=== PATIENT | male | born 1950 | race Caucasian/White ===

== ENCOUNTER 2018-03-06 05:54 | Day surgery (SDC) | payer MEDICARE, BC ==
[2018-03-06] MEDS ORDERED: Scopolamine 1.5 MG Transdermal Patch TOP SCH (06:10)
[2018-03-06] MEDS ORDERED: ceFAZolin 2 GM in Premix Bag 1 BAG IV ONE (06:10)
[2018-03-06] MEDS ORDERED: Lactated Ringers 1,000 ML IV SCH (06:10)
[2018-03-06] MEDS ORDERED: Acetaminophen 500 MG Tab PO ONE (06:10)
[2018-03-06] MEDS ORDERED: Midazolam 1 MG/ML 2 ML SDV ONE (07:12)
[2018-03-06] MEDS ORDERED: fentaNYL 250 MCG/5 ML SDV ONE (07:12)
[2018-03-06] MEDS ORDERED: Rocuronium 50 MG/5 ML Vial ONE (07:13)
[2018-03-06] MEDS ORDERED: Glycopyrrolate 0.2 MG/ML 5 ML MDV ONE (07:13)
[2018-03-06] MEDS ORDERED: Neostigmine Methylsulfate 1 MG/ML 5 ML Syringe ONE (07:13)
[2018-03-06] MEDS ORDERED: Propofol 200 MG/20 ML SDV ONE (07:13)
[2018-03-06] MEDS ORDERED: Dexamethasone 4 MG/ML SDV ONE (07:13)
[2018-03-06] MEDS ORDERED: Ondansetron 4 MG/2 ML SDV ONE (07:13)
[2018-03-06] MEDS ORDERED: Succinylcholine 200 MG/10 ML MDV ONE (07:13)
[2018-03-06] MEDS ORDERED: Lidocaine 1% 2 ML ONE (07:17)
[2018-03-06] MEDS ORDERED: Bupivacaine 0.5% 30 ML SDV ONE ×2 (07:17→08:22)
[2018-03-06] MEDS ORDERED: EPINEPHrine 1 MG/ML SDV ONE (07:20)
[2018-03-06] MEDS ORDERED: Povidone-Iodine 10% Soln 118.25 ML Bottle ONE (07:20)
[2018-03-06] MEDS ORDERED: Bupivacaine 0.5%/EPINEPHrine 1:200,000 50 ML MDV ONE (07:20)
[2018-03-06] MEDS ORDERED: ePHEDrine 50 MG/ML SDV ONE (08:17)
[2018-03-06] MEDS ORDERED: Lactated Ringers 1,000 ML ONE (09:43)
[2018-03-06] MEDS ORDERED: Acetaminophen/oxyCODONE 325-5 MG Tab PO ONE (11:18)
[2018-03-06] MEDS ORDERED: Ketorolac 60 MG/2 ML SDV IM ONE (11:18)
[2018-03-06 11:44] VITALS: BP 120/62
--- NOTE | 2018-03-06 12:04 | OR ---
DATE OF PROCEDURE: 03/06/2018 PREOPERATIVE DIAGNOSES: 1. Right thumb ganglion cyst. 2. Right shoulder impingement. 3. Right shoulder rotator cuff tear. POSTOPERATIVE DIAGNOSES: 1. Right thumb ganglion cyst. 2. Right shoulder impingement. 3. Right shoulder rotator cuff tear. PROCEDURE: 1. Right thumb ganglion removal. 2. Right shoulder arthroscopy with subacromial decompression. 3. Distal clavicle resection. 4. Limited debridement. 5. Mini open rotator cuff repair. ANESTHESIA: Interscalene block plus general endotracheal intubation. FLUID: Lactated Ringer's solution. ESTIMATED BLOOD LOSS: Less than 10 mL. COMPLICATIONS: None. SPECIMEN: None. DISCHARGE DISPOSITION: Stable to PACU. HISTORY AND INDICATIONS FOR THE PROCEDURE: The patient was seen preoperatively by myself in the clinic. He had a preoperative MRI confirming the above-mentioned diagnosis. He also had a ganglion on his right thumb. This had been removed previously. Risks and benefits of the procedure were explained to the patient. Informed consent was obtained. DETAILS OF THE PROCEDURE: The patient was seen preoperatively by myself and the Anesthesia staff in the preoperative holding area, where the operative site was marked. He was brought to the operative suite by the Anesthesia staff, where general anesthesia was administered. After an interscalene block was performed, we 1st positioned him in a supine position on the table with a hand table for the ganglion cyst removal. Well-padded tourniquet was placed on the right arm. The right upper extremity was then prepped and draped in a sterile manner. Time-out was called identifying the correct patient, the correct procedure, the correct site, and antibiotics had begun within appropriate period of time. The right upper extremity was then exsanguinated. Tourniquet was raised to 250 mmHg. I then used a Kwan incision over the ulnar aspect of the thumb just distal to the interphalangeal joint on its extensor surface over the ganglion. The ganglion was penetrated 1st. I then used small skin hooks to carefully peel back the skin with a 15 blade and then used iris scissors to go down to the base of the ganglion at the interphalangeal joint and then I used a Josie to rough up the surface after removing the root of the ganglion. I then copiously irrigated with saline and then closed my incision with 3-0 nylon followed by Betadine-soaked Adaptic and sterile dressing. We then removed out all of our drapes and then re-prepped the right arm after placing him into a beach chair position. All extremities were found to be well padded. After the right upper extremity was then prepped and draped in a sterile manner, time-out again was then called, identifying the correct patient, the correct procedure, the correct site, and antibiotics had begun within appropriate period of time. I then made a posterior portal and into the joint. He did have some minor fraying of the glenoid at the biceps insertion. The rotator cuff tear was visualized. I used a shaver and an ablation unit to debride the frayed tears. I did this through an anterior portal with a disposable trocar. After this had been done, I then entered the subacromial space and then made a lateral portal. I then debrided the subacromial space with a shaver and ablation unit. I then debrided the inferior surface of the acromial hook, which was a type 2 as well as the distal clavicle, which had a very large inferior osteophyte. I then spent a great deal of time removing over 50% of the inferior acromion as well as the inferior clavicle. After this had been performed, I controlled any bleeders with the ablation unit. I then removed all of my arthroscopy equipment from the joint. I then re-prepped and then made a horizontal incision approximately 1 cm distal to the acromion and then went through the raphae between the anterior and medial portions of the deltoid approximately where my lateral portal was. After this had been done, I removed some excess bursa. I was able to identify the rotator cuff tear. I then placed two JuggerKnot anchors and then did mattress sutures from each anchor through the anterior and posterior portion of the cuff. After this had been done, I then tensioned these and tied these down and then I placed two knotless [place] anchors and then placed those in a distal row and then took a suture from each of the previous anchors and tamped those down into the [place] anchors. After this had been accomplished, I then clipped my strands. We then copiously irrigated with saline. I closed the deltoid with #1 StrataFix followed by subcutaneous closure with 2-0 Vicryl followed by skin alix for the open rotator cuff incision as well as the portals. This was covered by Betadine-soaked Adaptic and sterile dressings and Medipore tape. The patient was then moved into the hospital bed in a supine position, taken to the PACU in stable condition. Bakari Staton DO /[id number]
== END 2018-03-06 12:50 | disposition home or self-care (01) ==
LOC: JP.SDS 05:54
PROVIDERS: ATTEND Orthopaedic Surgery
DX: M75.121 Complete rotator cuff tear or rupture of right shoulder, not specified as traumatic (principal); M67.441 Ganglion, right hand; M25.811 Other specified joint disorders, right shoulder; Z79.899 Other long term (current) drug therapy; I10 Essential (primary) hypertension; G47.30 Sleep apnea, unspecified; M19.90 Unspecified osteoarthritis, unspecified site; G43.909 Migraine, unspecified, not intractable, without status migrainosus; F41.9 Anxiety disorder, unspecified; Z90.49 Acquired absence of other specified parts of digestive tract
CPT/HCPCS: 23410; 26160; 29824; A9270; C1713; J0171; J0330; J1100; J1885; J2001; J2250; J2405; J2704; J3010; J3370; J7050; J7120; J2710

== ENCOUNTER 2023-08-13 13:19 | Emergency (ER) | payer MEDICARE ==
[2023-08-13 13:49] VITALS: BP 137/62; PULSE 74
[2023-08-13 14:19] LABS: BASOPHILS ABSOLUTE AUTO 0.04 K/uL (0.00-0.10); BASOPHILS PERCENT AUTO 0.4 % (0.1-1.3); EOSINOPHILS PERCENT AUTO 0.1 % (0.0-5.4); HEMATOCRIT 38.9 % (38.4-49.7); HEMOGLOBIN 12.7 g/dL (12.9-16.9); IMMATURE GRAN ABSOLUTE AUTO 0.05 K/uL (0.00-0.23); IMMATURE GRAN PERCENT AUTO 0.6 % (0.0-0.7); LYMPHOCYTES ABSOLUTE AUTO 0.59 K/uL (0.8-3.3); LYMPHOCYTES PERCENT AUTO 6.5 % (11.4-47.7); MEAN CORPUSCULAR HEMOGLOBIN 29.5 pg (31.6-35.5); MEAN CORPUSCULAR HGB CONC 32.6 g/dL (31.6-35.5); MEAN CORPUSCULAR VOLUME 90.3 fL (81.4-99.0); MONOCYTES ABSOLUTE AUTO 0.64 K/uL (0.20-0.90); NEUTROPHILS ABSOLUTE AUTO 7.75 K/uL (1.0-7.6); NEUTROPHILS PERCENT AUTO 85.4 % (40.0-78.1); PLATELET COUNT,PLT 204 K/uL (130-375); RED BLOOD CELL COUNT 4.31 M/uL (4.14-5.76); WHITE BLOOD CELL COUNT,WBC 9.1 K/uL (3.2-11.0)
[2023-08-13 14:21] LABS: EOSINOPHILS ABSOLUTE AUTO 0.01 K/uL (0.00-0.40)
[2023-08-13 14:42] LABS: A/G RATIO 0.7 (1.2-2.2); ALANINE AMINOTRANSFERASE,ALT 3 U/L (12-78); ALBUMIN 2.6 g/dL (3.4-5.0); ALKALINE PHOSPHATASE 70 U/L (46-116); ASPARTATE AMNIOTRANSFERASE,AST 44 U/L (15-37); BLOOD UREA NITROGEN,BUN 18 mg/dL (7-18); CALCIUM 8.7 mg/dL (8.5-10.1); CARBON DIOXIDE,CO2 27 mmol/L (21-32); CHLORIDE,CL 103 mmol/L (100-108); CREATININE 0.8 mg/dL (0.8-1.3); EST CRCL DRUG DOSING (CG) 95.71 mL/min; ESTIMATED GFR 95 mL/min (>60); GLUCOSE RANDOM 127 mg/dL (74-106); POTASSIUM,K 3.7 mmol/L (3.6-5.2); PROTEIN TOTAL,TP 6.5 g/dL (6.4-8.2); SODIUM,NA 138 mmol/L (140-148)
[2023-08-13 14:46] LABS: ANION GAP 11.7 mmol/L (5.0-14.0)
[2023-08-13 17:31] LABS: APPEARANCE,URINE CLEAR (CLEAR); BILIRUBIN,URINE SMALL (NEGATIVE); COLOR,URINE ORANGE (YELLOW); GLUCOSE,URINE NEGATIVE (NEGATIVE); KETONES,URINE 40 mg/dL (NEGATIVE); LEUKOCYTE ESTERASE,URINE NEGATIVE (NEGATIVE); NITRITE,URINE NEGATIVE (NEGATIVE); OCCULT BLOOD,URINE NEGATIVE (NEGATIVE); PROTEIN,URINE NEGATIVE (NEGATIVE)
[2023-08-13 17:42] LABS: AMORPHOUS SEDIMENT,URINE NOT SEEN; BACTERIA,URINE NOT SEEN; EPITHELIAL CELLS,URINE NOT SEEN; MUCUS,URINE FEW; RBC,URINE 0-5 (0-5); WBC,URINE 0-5 (0-5)
== END 2023-08-13 17:43 | disposition home or self-care (01) ==
LOC: JP.ED 13:19
DX: M17.11 Unilateral primary osteoarthritis, right knee (principal); R53.1 Weakness; I10 Essential (primary) hypertension; E11.9 Type 2 diabetes mellitus without complications; Z79.899 Other long term (current) drug therapy
CPT/HCPCS: 36415; 73562-26-RT; 73562-RT; 80053; 81001; 83605; 85025; 99285

== ENCOUNTER 2023-09-03 19:48 | Inpatient (IN) | payer MEDICARE ==
[2023-09-03 20:05] LABS: BASOPHILS ABSOLUTE AUTO 0.03 K/uL (0.00-0.10); BASOPHILS PERCENT AUTO 0.3 % (0.1-1.3); EOSINOPHILS ABSOLUTE AUTO 0.01 K/uL (0.00-0.40); EOSINOPHILS PERCENT AUTO 0.1 % (0.0-5.4); HEMATOCRIT 37.2 % (38.4-49.7); HEMOGLOBIN 12.5 g/dL (12.9-16.9); IMMATURE GRAN ABSOLUTE AUTO 0.07 K/uL (0.00-0.23); IMMATURE GRAN PERCENT AUTO 0.6 % (0.0-0.7); LYMPHOCYTES ABSOLUTE AUTO 0.74 K/uL (0.8-3.3); LYMPHOCYTES PERCENT AUTO 6.8 % (11.4-47.7); MEAN CORPUSCULAR HEMOGLOBIN 29.4 pg (31.6-35.5); MEAN CORPUSCULAR HGB CONC 33.6 g/dL (31.6-35.5); MEAN CORPUSCULAR VOLUME 87.5 fL (81.4-99.0); MONOCYTES ABSOLUTE AUTO 0.61 K/uL (0.20-0.90); MONOCYTES PERCENT AUTO 5.6 % (3.3-12.6); NEUTROPHILS ABSOLUTE AUTO 9.35 K/uL (1.0-7.6); NEUTROPHILS PERCENT AUTO 86.6 % (40.0-78.1); PLATELET COUNT,PLT 239 K/uL (130-375); RED BLOOD CELL COUNT 4.25 M/uL (4.14-5.76); WHITE BLOOD CELL COUNT,WBC 10.8 K/uL (3.2-11.0)
[2023-09-03 20:27] LABS: A/G RATIO 0.7 (1.2-2.2); ALANINE AMINOTRANSFERASE,ALT 1 U/L (12-78); ALBUMIN 2.9 g/dL (3.4-5.0); ALKALINE PHOSPHATASE 69 U/L (46-116); ASPARTATE AMNIOTRANSFERASE,AST 32 U/L (15-37); BLOOD UREA NITROGEN,BUN 49 mg/dL (7-18); CALCIUM 8.9 mg/dL (8.5-10.1); CARBON DIOXIDE,CO2 23 mmol/L (21-32); CHLORIDE,CL 92 mmol/L (100-108); EST CRCL DRUG DOSING (CG) 25.52 mL/min; ESTIMATED GFR 22 mL/min (>60); GLUCOSE RANDOM 114 mg/dL (74-106); PROTEIN TOTAL,TP 7.1 g/dL (6.4-8.2); SODIUM,NA 130 mmol/L (140-148)
[2023-09-03 20:43] LABS: CORONAVIRUS COVID-19 NAA NEGATIVE (NEGATIVE); INFLUENZA A NAA NEGATIVE (NEGATIVE); INFLUENZA B NAA NEGATIVE (NEGATIVE); RESPIRATORY SYNCYTIAL VIR NAA NEGATIVE (NEGATIVE)
[2023-09-03] MEDS ORDERED: Sodium Chloride 0.9% 1,000 ML IV SCH ×3 (21:00→23:23)
[2023-09-03 23:19] LABS: APPEARANCE,URINE CLEAR (CLEAR); BILIRUBIN,URINE SMALL (NEGATIVE); COLOR,URINE BROWN (YELLOW); GLUCOSE,URINE NEGATIVE (NEGATIVE); KETONES,URINE 15 mg/dL (NEGATIVE); LEUKOCYTE ESTERASE,URINE NEGATIVE (NEGATIVE); NITRITE,URINE NEGATIVE (NEGATIVE); OCCULT BLOOD,URINE NEGATIVE (NEGATIVE); PH,URINE 5.5 (5.0-8.0); PROTEIN,URINE 30 mg/dL (NEGATIVE)
[2023-09-03] MEDS ORDERED: Naloxone 0.4 MG/ML SDV IVPUSH PRN (23:23)
[2023-09-03] MEDS ORDERED: Morphine 2 MG/ML SYRINGE IVPUSH PRN (23:23)
[2023-09-03] MEDS ORDERED: Non-Formulary Medication 1 Each (Carbidopa/Levodopa [Carbidopa-Levodopa 25-250] 1 EACH Tab PO SCH (23:23)
[2023-09-03] MEDS ORDERED: Ondansetron 4 MG Tab.DIS PO PRN (23:23)
[2023-09-03] MEDS ORDERED: Enoxaparin 30 MG/0.3 ML Syringe SUBCUT SCH (23:23)
[2023-09-03 23:27] LABS: BACTERIA,URINE MODERATE; EPITHELIAL CELLS,URINE FEW; RBC,URINE 0-5 (0-5); WBC,URINE 0-5 (0-5)
[2023-09-03 23:28] LABS: AMORPHOUS SEDIMENT,URINE FEW; MUCUS,URINE NOT SEEN
[2023-09-03] MEDS: metroNIDAZOLE/Normal Saline 500 MG in Premix Bag 1 BAG IV SCH (23:55)
[2023-09-03] MEDS: Acetaminophen 325 MG Tab PO PRN (23:56)
[2023-09-04] MEDS ORDERED: Sodium Chloride 0.9% 1,000 ML IV SCH ×2 (00:15→05:16)
[2023-09-04] MEDS ORDERED: Ciprofloxacin in D5W 400 MG in Premix Bag 1 BAG IV SCH ×4 (01:00→13:00)
[2023-09-04] MEDS: ALPRAZolam 0.5 MG Tab PO PRN (01:16)
[2023-09-04] MEDS: oxyCODONE 5 MG Tab PO PRN ×3 (01:27→20:25)
[2023-09-04] MEDS ORDERED: Sodium Chloride 0.9% 10 ML SDV IV SCH ×2 (03:01)
[2023-09-04 05:28] LABS: BASOPHILS ABSOLUTE AUTO 0.03 K/uL (0.00-0.10); BASOPHILS PERCENT AUTO 0.4 % (0.1-1.3); EOSINOPHILS ABSOLUTE AUTO 0.04 K/uL (0.00-0.40); EOSINOPHILS PERCENT AUTO 0.6 % (0.0-5.4); HEMATOCRIT 31.3 % (38.4-49.7); HEMOGLOBIN 10.3 g/dL (12.9-16.9); IMMATURE GRAN ABSOLUTE AUTO 0.03 K/uL (0.00-0.23); IMMATURE GRAN PERCENT AUTO 0.4 % (0.0-0.7); LYMPHOCYTES ABSOLUTE AUTO 0.65 K/uL (0.8-3.3); LYMPHOCYTES PERCENT AUTO 9.1 % (11.4-47.7); MEAN CORPUSCULAR HEMOGLOBIN 29.4 pg (31.6-35.5); MEAN CORPUSCULAR HGB CONC 32.9 g/dL (31.6-35.5); MEAN CORPUSCULAR VOLUME 89.4 fL (81.4-99.0); MONOCYTES ABSOLUTE AUTO 0.47 K/uL (0.20-0.90); MONOCYTES PERCENT AUTO 6.6 % (3.3-12.6); NEUTROPHILS ABSOLUTE AUTO 5.92 K/uL (1.0-7.6); NEUTROPHILS PERCENT AUTO 82.9 % (40.0-78.1); PLATELET COUNT,PLT 175 K/uL (130-375); WHITE BLOOD CELL COUNT,WBC 7.1 K/uL (3.2-11.0)
[2023-09-04 05:46] LABS: CALCIUM 7.9 mg/dL (8.5-10.1); CREATININE 1.6 mg/dL (0.8-1.3); EST CRCL DRUG DOSING (CG) 47.86 mL/min; POTASSIUM,K 3.5 mmol/L (3.6-5.2)
[2023-09-04 05:48] LABS: ANION GAP 12.5 mmol/L (5.0-14.0)
[2023-09-04] MEDS: metroNIDAZOLE/Normal Saline 500 MG in Premix Bag 1 BAG IV SCH (08:35)
[2023-09-04] MEDS ORDERED: Potassium Chloride 20 MEQ Tab.ER PO ONE (09:00)
[2023-09-04] MEDS: Acetaminophen 325 MG Tab PO PRN ×2 (09:52→16:07)
[2023-09-04] MEDS: CARBIDOPA LEVODOPA PO SCH ×3 (10:35→20:14)
[2023-09-04] MEDS ORDERED: Nystatin Topical Powder 15 GM Bottle TOP PRN (14:36)
[2023-09-04] MEDS: Enoxaparin 40 MG/0.4 ML Syringe SUBCUT SCH (20:15)
[2023-09-05] MEDS: ALPRAZolam 0.5 MG Tab PO PRN (00:08)
[2023-09-05] MEDS: Acetaminophen 325 MG Tab PO PRN ×3 (00:08→21:55)
[2023-09-05 07:09] LABS: CALCIUM 8.8 mg/dL (8.5-10.1); CREATININE 0.9 mg/dL (0.8-1.3); EST CRCL DRUG DOSING (CG) 85.08 mL/min; POTASSIUM,K 4.4 mmol/L (3.6-5.2)
[2023-09-05 07:10] LABS: ANION GAP 14.4 mmol/L (5.0-14.0)
[2023-09-05 07:47] LABS: BASOPHILS ABSOLUTE AUTO 0.05 K/uL (0.00-0.10); BASOPHILS PERCENT AUTO 0.9 % (0.1-1.3); EOSINOPHILS ABSOLUTE AUTO 0.17 K/uL (0.00-0.40); EOSINOPHILS PERCENT AUTO 2.9 % (0.0-5.4); HEMATOCRIT 35.2 % (38.4-49.7); HEMOGLOBIN 11.6 g/dL (12.9-16.9); IMMATURE GRAN ABSOLUTE AUTO 0.04 K/uL (0.00-0.23); IMMATURE GRAN PERCENT AUTO 0.7 % (0.0-0.7); LYMPHOCYTES ABSOLUTE AUTO 0.71 K/uL (0.8-3.3); LYMPHOCYTES PERCENT AUTO 12.2 % (11.4-47.7); MEAN CORPUSCULAR HEMOGLOBIN 29.4 pg (31.6-35.5); MEAN CORPUSCULAR VOLUME 89.3 fL (81.4-99.0); MONOCYTES ABSOLUTE AUTO 0.43 K/uL (0.20-0.90); MONOCYTES PERCENT AUTO 7.4 % (3.3-12.6); NEUTROPHILS ABSOLUTE AUTO 4.41 K/uL (1.0-7.6); NEUTROPHILS PERCENT AUTO 75.9 % (40.0-78.1); PLATELET COUNT,PLT 194 K/uL (130-375); RED BLOOD CELL COUNT 3.94 M/uL (4.14-5.76); WHITE BLOOD CELL COUNT,WBC 5.8 K/uL (3.2-11.0)
[2023-09-05] MEDS: CARBIDOPA LEVODOPA PO SCH ×3 (08:45→20:35)
[2023-09-05] MEDS ORDERED: Nystatin Topical Powder 15 GM Bottle TOP PRN (09:17)
[2023-09-05] MEDS: Diclofenac Sodium 1% Gel 100 GM Tube TOP SCH ×2 (15:30→21:37)
[2023-09-05] MEDS: oxyCODONE 5 MG Tab PO PRN (16:27)
[2023-09-05] MEDS: Enoxaparin 40 MG/0.4 ML Syringe SUBCUT SCH (20:36)
[2023-09-05] MEDS: Celecoxib 200 MG Cap PO SCH (20:36)
[2023-09-06] MEDS: Acetaminophen 325 MG Tab PO PRN (02:50)
[2023-09-06 04:30] LABS: BASOPHILS ABSOLUTE AUTO 0.04 K/uL (0.00-0.10); EOSINOPHILS ABSOLUTE AUTO 0.11 K/uL (0.00-0.40); EOSINOPHILS PERCENT AUTO 2.6 % (0.0-5.4); HEMATOCRIT 36.1 % (38.4-49.7); HEMOGLOBIN 11.9 g/dL (12.9-16.9); IMMATURE GRAN ABSOLUTE AUTO 0.06 K/uL (0.00-0.23); IMMATURE GRAN PERCENT AUTO 1.4 % (0.0-0.7); LYMPHOCYTES ABSOLUTE AUTO 0.79 K/uL (0.8-3.3); LYMPHOCYTES PERCENT AUTO 18.8 % (11.4-47.7); MEAN CORPUSCULAR HEMOGLOBIN 29.3 pg (31.6-35.5); MEAN CORPUSCULAR VOLUME 88.9 fL (81.4-99.0); MONOCYTES ABSOLUTE AUTO 0.42 K/uL (0.20-0.90); NEUTROPHILS ABSOLUTE AUTO 2.79 K/uL (1.0-7.6); NEUTROPHILS PERCENT AUTO 66.2 % (40.0-78.1); PLATELET COUNT,PLT 175 K/uL (130-375); RED BLOOD CELL COUNT 4.06 M/uL (4.14-5.76); WHITE BLOOD CELL COUNT,WBC 4.2 K/uL (3.2-11.0)
[2023-09-06 04:47] LABS: CALCIUM 8.8 mg/dL (8.5-10.1); CREATININE 0.8 mg/dL (0.8-1.3); EST CRCL DRUG DOSING (CG) 94.33 mL/min; POTASSIUM,K 4.1 mmol/L (3.6-5.2)
[2023-09-06 05:08] LABS: ANION GAP 12.1 mmol/L (5.0-14.0)
[2023-09-06] MEDS: Diclofenac Sodium 1% Gel 100 GM Tube TOP SCH ×2 (05:22→12:11)
[2023-09-06] MEDS: Celecoxib 200 MG Cap PO SCH (08:01)
[2023-09-06] MEDS: CARBIDOPA LEVODOPA PO SCH ×2 (08:01→12:50)
[2023-09-06 11:00] VITALS: BP 118/67; PULSE 74
== END 2023-09-06 13:25 | DRG 392 ==
LOC: JP.ED 19:48 → JP.MS 21:59
PROVIDERS: ADMIT Hospitalist; ATTEND Hospitalist
DX: K52.9 Noninfective gastroenteritis and colitis, unspecified (principal); F02.84 Dementia in other diseases classified elsewhere, unspecified severity, with anxiety; F03.94 Unspecified dementia, unspecified severity, with anxiety; N17.9 Acute kidney failure, unspecified; E86.0 Dehydration; I10 Essential (primary) hypertension; E11.9 Type 2 diabetes mellitus without complications; F41.9 Anxiety disorder, unspecified; G43.909 Migraine, unspecified, not intractable, without status migrainosus; M19.90 Unspecified osteoarthritis, unspecified site; M54.9 Dorsalgia, unspecified; G89.29 Other chronic pain; G47.30 Sleep apnea, unspecified; M17.0 Bilateral primary osteoarthritis of knee; G20.A1 Parkinson's disease without dyskinesia, without mention of fluctuations; B96.89 Other specified bacterial agents as the cause of diseases classified elsewhere; Z79.899 Other long term (current) drug therapy; Z90.49 Acquired absence of other specified parts of digestive tract; Z98.890 Other specified postprocedural states; Z11.52 Encounter for screening for COVID-19; Z98.84 Bariatric surgery status
CPT/HCPCS: 0241U; 36415; 735622650; 73562-50; 80048; 80053; 81001; 83605; 83735; 84484; 85025; 87040; 87077; 87086; 87088; 87186; 93005; 93010; 96125-GO; 96360; 97161-GP; 97166-GO; 97530-GP; 99284; 99285-25; A9270-GY; J0744; J1650; J3490; J7030

== ENCOUNTER 2024-11-18 12:57 | Emergency (ER) | payer MEDICARE ==
[2024-11-18 13:10] VITALS: BP 126/75; PULSE 90
== END 2024-11-18 14:30 | disposition home or self-care (01) ==
LOC: JP.ED 12:57
DX: R13.10 Dysphagia, unspecified (principal); I10 Essential (primary) hypertension; E11.9 Type 2 diabetes mellitus without complications; Z90.49 Acquired absence of other specified parts of digestive tract; Z79.899 Other long term (current) drug therapy
CPT/HCPCS: 71046; 71046-26; 99284

== ENCOUNTER 2025-05-03 18:31 | Emergency (ER) | payer MEDICARE ==
[2025-05-03 19:40] LABS: BASOPHILS ABSOLUTE AUTO 0.06 K/uL (0.00-0.10); BASOPHILS PERCENT AUTO 1.2 % (0.1-1.3); EOSINOPHILS ABSOLUTE AUTO 0.19 K/uL (0.00-0.40); EOSINOPHILS PERCENT AUTO 3.7 % (0.0-5.4); IMMATURE GRAN ABSOLUTE AUTO 0.03 K/uL (0.00-0.23); IMMATURE GRAN PERCENT AUTO 0.6 % (0.0-0.7); LYMPHOCYTES ABSOLUTE AUTO 1.34 K/uL (0.8-3.3); LYMPHOCYTES PERCENT AUTO 26.2 % (11.4-47.7); MONOCYTES ABSOLUTE AUTO 0.41 K/uL (0.20-0.90); MONOCYTES PERCENT AUTO 8.0 % (3.3-12.6); NEUTROPHILS ABSOLUTE AUTO 3.09 K/uL (1.0-7.6); NEUTROPHILS PERCENT AUTO 60.3 % (40.0-78.1); PLATELET COUNT,PLT 151 K/uL (130-375); RED BLOOD CELL COUNT 4.77 M/uL (4.14-5.76); WHITE BLOOD CELL COUNT,WBC 5.1 K/uL (3.2-11.0)
[2025-05-03 19:55] LABS: BLOOD UREA NITROGEN,BUN 18.0 mg/dL (7-18); CARBON DIOXIDE,CO2 31.0 mmol/L (21-32); CHLORIDE,CL 100.0 mmol/L (100-108); CREATININE 1.0 mg/dL (0.8-1.3); EST CRCL DRUG DOSING (CG) 74.35 mL/min; ESTIMATED GFR 79.0 mL/min (>60); GLUCOSE RANDOM 190.0 mg/dL (74-106); POTASSIUM,K 3.9 mmol/L (3.6-5.2); SODIUM,NA 138.0 mmol/L (140-148)
[2025-05-03 22:18] LABS: APPEARANCE,URINE CLEAR (CLEAR); GLUCOSE,URINE NEGATIVE (NEGATIVE); OCCULT BLOOD,URINE NEGATIVE (NEGATIVE)
[2025-05-03 22:29] LABS: EPITHELIAL CELLS,URINE NOT SEEN
[2025-05-03 23:15] VITALS: BP 144/85; PULSE 63
== END 2025-05-03 23:16 | disposition home or self-care (01) ==
LOC: JP.ED 18:31
DX: G45.9 Transient cerebral ischemic attack, unspecified (principal); G20.A1 Parkinson's disease without dyskinesia, without mention of fluctuations; I10 Essential (primary) hypertension; E11.9 Type 2 diabetes mellitus without complications; Z90.49 Acquired absence of other specified parts of digestive tract; Z79.899 Other long term (current) drug therapy
CPT/HCPCS: 36415; 70450; 80048; 81001; 82947; 85025; 99285; A9270; C1758; 99284

== ENCOUNTER 2025-05-07 17:00 | Inpatient (IN) | payer MEDICARE ==
[2025-05-07 17:32] LABS: BASOPHILS ABSOLUTE AUTO 0.04 K/uL (0.00-0.10); BASOPHILS PERCENT AUTO 0.2 % (0.1-1.3); EOSINOPHILS ABSOLUTE AUTO 0.01 K/uL (0.00-0.40); EOSINOPHILS PERCENT AUTO 0.1 % (0.0-5.4); IMMATURE GRAN ABSOLUTE AUTO 0.08 K/uL (0.00-0.23); IMMATURE GRAN PERCENT AUTO 0.5 % (0.0-0.7); LYMPHOCYTES ABSOLUTE AUTO 0.86 K/uL (0.8-3.3); LYMPHOCYTES PERCENT AUTO 5.2 % (11.4-47.7); MONOCYTES ABSOLUTE AUTO 0.72 K/uL (0.20-0.90); MONOCYTES PERCENT AUTO 4.3 % (3.3-12.6); NEUTROPHILS ABSOLUTE AUTO 14.87 K/uL (1.0-7.6); NEUTROPHILS PERCENT AUTO 89.7 % (40.0-78.1); PLATELET COUNT,PLT 156 K/uL (130-375); RED BLOOD CELL COUNT 5.20 M/uL (4.14-5.76); WHITE BLOOD CELL COUNT,WBC 16.6 K/uL (3.2-11.0)
[2025-05-07 17:48] LABS: INR 1.0
[2025-05-07 17:52] LABS: A/G RATIO 1.1 (1.2-2.2); ALANINE AMINOTRANSFERASE,ALT 20 U/L (12-78); ASPARTATE AMNIOTRANSFERASE,AST 26 U/L (15-37); BILIRUBIN TOTAL 1.4 mg/dL (0.2-1.0); BLOOD UREA NITROGEN,BUN 23 mg/dL (7-18); CARBON DIOXIDE,CO2 22 mmol/L (21-32); CHLORIDE,CL 101 mmol/L (100-108); CREATININE 1.6 mg/dL (0.8-1.3); EST CRCL DRUG DOSING (CG) 45.13 mL/min; ESTIMATED GFR 45 mL/min (>60); GLUCOSE RANDOM 181 mg/dL (74-106); POTASSIUM,K 4.2 mmol/L (3.6-5.2); PROTEIN TOTAL,TP 7.0 g/dL (6.4-8.2); SODIUM,NA 138 mmol/L (140-148)
[2025-05-07] MEDS ORDERED: Ondansetron 4 MG Tab.DIS PO PRN (21:32)
[2025-05-07] MEDS: LORazepam 2 MG/ML SDV IVPUSH PRN (22:47)
[2025-05-07] MEDS: Carbidopa/Levodopa 50-200 MG Tab.ER PO SCH (22:47)
[2025-05-08 00:22] LABS: APPEARANCE,URINE CLEAR (CLEAR); GLUCOSE,URINE NEGATIVE (NEGATIVE); OCCULT BLOOD,URINE NEGATIVE (NEGATIVE)
[2025-05-08 00:28] LABS: EPITHELIAL CELLS,URINE RARE
[2025-05-08 07:22] LABS: BASOPHILS ABSOLUTE AUTO 0.04 K/uL (0.00-0.10); BASOPHILS PERCENT AUTO 0.5 % (0.1-1.3); EOSINOPHILS ABSOLUTE AUTO 0.22 K/uL (0.00-0.40); EOSINOPHILS PERCENT AUTO 2.7 % (0.0-5.4); IMMATURE GRAN ABSOLUTE AUTO 0.05 K/uL (0.00-0.23); IMMATURE GRAN PERCENT AUTO 0.6 % (0.0-0.7); LYMPHOCYTES ABSOLUTE AUTO 1.31 K/uL (0.8-3.3); LYMPHOCYTES PERCENT AUTO 16.1 % (11.4-47.7); MONOCYTES ABSOLUTE AUTO 0.53 K/uL (0.20-0.90); MONOCYTES PERCENT AUTO 6.5 % (3.3-12.6); NEUTROPHILS ABSOLUTE AUTO 6.01 K/uL (1.0-7.6); NEUTROPHILS PERCENT AUTO 73.6 % (40.0-78.1); PLATELET COUNT,PLT 144 K/uL (130-375); RED BLOOD CELL COUNT 4.84 M/uL (4.14-5.76); WHITE BLOOD CELL COUNT,WBC 8.2 K/uL (3.2-11.0)
[2025-05-08 07:37] LABS: BLOOD UREA NITROGEN,BUN 15.0 mg/dL (7-18); CARBON DIOXIDE,CO2 30.0 mmol/L (21-32); CHLORIDE,CL 104.0 mmol/L (100-108); CREATININE 1.0 mg/dL (0.8-1.3); EST CRCL DRUG DOSING (CG) 74.35 mL/min; ESTIMATED GFR 79.0 mL/min (>60); GLUCOSE RANDOM 140.0 mg/dL (74-106); POTASSIUM,K 4.4 mmol/L (3.6-5.2); SODIUM,NA 140.0 mmol/L (140-148)
[2025-05-10] MEDS: Divalproex Sodium Delayed-Release 125 MG Cap.Sprink PO SCH (14:53)
[2025-05-11] MEDS: CARBIDOPA PO SCH (13:08)
[2025-05-11] MEDS: LEVODOPA PO SCH (13:08)
[2025-05-11 18:03] LABS: NOROVIRUS 1 BY PCR Not Detected; NOROVIRUS 2 BY PCR Not Detected
[2025-05-12] MEDS: Sennosides/Docusate Sodium 50-8.6 MG Tab PO SCH (14:20)
[2025-05-13] MEDS ORDERED: Non-Formulary Medication 1 Each (Carbidopa/Levodopa [Carbidopa-Levodopa 25-250] 1 EACH Tab PO SCH (16:00)
[2025-05-13 16:49] LABS: OVA AND PARASITE,FECAL INTERP Negative (Negative)
[2025-05-14 05:49] VITALS: BP 131/74; PULSE 66
[2025-05-14] MEDS: Sennosides/Docusate Sodium 50-8.6 MG Tab PO SCH (08:43)
[2025-05-14] MEDS ORDERED: Sennosides/Docusate Sodium 50-8.6 MG Tab PO SCH ×2 (14:00→21:00)
== END 2025-05-14 09:59 | disposition home or self-care (01) | DRG 683 ==
LOC: JP.ED 17:00 → JP.MS 21:32
PROVIDERS: ADMIT Family Medicine; ATTEND Hospitalist
DX: N17.9 Acute kidney failure, unspecified (principal); R19.7 Diarrhea, unspecified; F02.B11 Dementia in other diseases classified elsewhere, moderate, with agitation; A08.4 Viral intestinal infection, unspecified; E86.0 Dehydration; Z66 Do not resuscitate; H54.7 Unspecified visual loss; I10 Essential (primary) hypertension; G47.30 Sleep apnea, unspecified; F32.A Depression, unspecified; E11.9 Type 2 diabetes mellitus without complications; E53.8 Deficiency of other specified B group vitamins; F41.9 Anxiety disorder, unspecified; K59.09 Other constipation; M17.0 Bilateral primary osteoarthritis of knee; G89.29 Other chronic pain; G20.A1 Parkinson's disease without dyskinesia, without mention of fluctuations; M54.9 Dorsalgia, unspecified; G43.909 Migraine, unspecified, not intractable, without status migrainosus; Z86.73 Personal history of transient ischemic attack (TIA), and cerebral infarction without residual deficits; Z79.899 Other long term (current) drug therapy; Z98.890 Other specified postprocedural states; Z90.49 Acquired absence of other specified parts of digestive tract
CPT/HCPCS: 36415; 71045 ×2; 80053; 83605; 84484; 85025; 85610; 93005; 93010; 96360; 96361; 99285 ×2; A9270; J7030 ×2; 80048; 81001; 87046; 87177; 87209; 87427; 87493; 87798; 97116-GP; 97161-GP; 97162-GP; 97530-GP; 99231; 99232; 99238; J2060

== ENCOUNTER 2025-06-22 11:58 | Emergency (ER) | payer MEDICARE ==
[2025-06-22 13:30] LABS: BASOPHILS ABSOLUTE AUTO 0.05 K/uL (0.00-0.10); BASOPHILS PERCENT AUTO 0.8 % (0.1-1.3); EOSINOPHILS ABSOLUTE AUTO 0.19 K/uL (0.00-0.40); EOSINOPHILS PERCENT AUTO 3.2 % (0.0-5.4); IMMATURE GRAN ABSOLUTE AUTO 0.04 K/uL (0.00-0.23); IMMATURE GRAN PERCENT AUTO 0.7 % (0.0-0.7); LYMPHOCYTES ABSOLUTE AUTO 1.10 K/uL (0.8-3.3); LYMPHOCYTES PERCENT AUTO 18.3 % (11.4-47.7); MONOCYTES ABSOLUTE AUTO 0.48 K/uL (0.20-0.90); MONOCYTES PERCENT AUTO 8.0 % (3.3-12.6); NEUTROPHILS ABSOLUTE AUTO 4.15 K/uL (1.0-7.6); NEUTROPHILS PERCENT AUTO 69.0 % (40.0-78.1); PLATELET COUNT,PLT 125 K/uL (130-375); RED BLOOD CELL COUNT 4.77 M/uL (4.14-5.76); WHITE BLOOD CELL COUNT,WBC 6.0 K/uL (3.2-11.0)
[2025-06-22 13:58] LABS: A/G RATIO 1.1 (1.2-2.2); ALANINE AMINOTRANSFERASE,ALT 28 U/L (12-78); ASPARTATE AMNIOTRANSFERASE,AST 37 U/L (15-37); BILIRUBIN TOTAL 1.0 mg/dL (0.2-1.0); BLOOD UREA NITROGEN,BUN 13 mg/dL (7-18); CARBON DIOXIDE,CO2 30 mmol/L (21-32); CHLORIDE,CL 102 mmol/L (100-108); CREATININE 0.7 mg/dL (0.8-1.3); EST CRCL DRUG DOSING (CG) 112.33 mL/min; ESTIMATED GFR 97 mL/min (>60); GLUCOSE RANDOM 120 mg/dL (74-106); POTASSIUM,K 3.9 mmol/L (3.6-5.2); PROTEIN TOTAL,TP 6.8 g/dL (6.4-8.2); SODIUM,NA 140 mmol/L (140-148)
[2025-06-22 14:09] LABS: APPEARANCE,URINE CLEAR (CLEAR); GLUCOSE,URINE NEGATIVE (NEGATIVE); OCCULT BLOOD,URINE NEGATIVE (NEGATIVE)
[2025-06-22 14:15] LABS: SQUAMOUS EPITHELIAL CELLS,UR RARE /HPF; UROTHELIAL CELLS,URINE NOT SEEN /HPF
[2025-06-22] MEDS: Sennosides/Docusate Sodium 50-8.6 MG Tab PO SCH (19:34)
[2025-06-22] MEDS ORDERED: Non-Formulary Medication 1 Each (Carbidopa/Levodopa [Carbidopa-Levodopa 25-250] 1 EACH Tab PO SCH (22:00)
[2025-06-23 08:38] VITALS: BP 160/78; PULSE 55
[2025-06-23] MEDS: CARBIDOPA LEVODOPA PO SCH (09:58)
[2025-06-23] MEDS: Divalproex Sodium Delayed-Release 250 MG Tab.CR PO SCH (13:43)
== END 2025-06-23 18:01 | disposition home or self-care (01) ==
LOC: JP.ED 11:58
DX: R45.6 Violent behavior (principal); I10 Essential (primary) hypertension; E11.9 Type 2 diabetes mellitus without complications; Z98.84 Bariatric surgery status; Z90.49 Acquired absence of other specified parts of digestive tract; Z88.8 Allergy status to other drugs, medicaments and biological substances; Z79.899 Other long term (current) drug therapy
CPT/HCPCS: 36415; 80053; 81001; 84443; 85025; 87426; 93005; 93010; 99284; 99285; A9270

== ENCOUNTER 2025-06-23 22:17 | Emergency (ER) | payer MEDICARE ==
[2025-06-24] MEDS ORDERED: Non-Formulary Medication 1 Each (Quetiapine [Seroquel] 50 MG Tablet) PO SCH (09:00)
[2025-06-24] MEDS ORDERED: Sennosides/Docusate Sodium 50-8.6 MG Tab PO SCH (09:00)
[2025-06-24] MEDS ORDERED: Non-Formulary Medication 1 Each (Quetiapine [Seroquel] 50 MG Tablet) PO PRN (09:01)
[2025-06-24] MEDS: Sennosides/Docusate Sodium 50-8.6 MG Tab PO SCH (09:15)
[2025-06-24] MEDS: CARBIDOPA LEVO PO SCH (09:36)
[2025-06-24 14:09] VITALS: BP 122/68; PULSE 71
== END 2025-06-24 16:13 ==
LOC: JP.ED 22:17
DX: F03.90 Unspecified dementia, unspecified severity, without behavioral disturbance, psychotic disturbance, mood disturbance, and anxiety (principal); I10 Essential (primary) hypertension; E11.9 Type 2 diabetes mellitus without complications; Z88.8 Allergy status to other drugs, medicaments and biological substances; Z79.899 Other long term (current) drug therapy; Z86.73 Personal history of transient ischemic attack (TIA), and cerebral infarction without residual deficits; Z90.49 Acquired absence of other specified parts of digestive tract
CPT/HCPCS: 99284; A9270